=== PATIENT | female | born 1990 | race Caucasian/White ===

== ENCOUNTER 2016-04-11 23:21 | Emergency (ER) | payer OTHER ==
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
--- NOTE | 2016-04-12 01:25 | ED ORDER SUMMARY ---
..... Patient: AARON ZHANG OrderSheet [facility] VisitID: [id number] [address] [place] [address] 25y, F Registration Date/Time: 04/11/2016 ORDER SHEET Weight: 49.8 kg (estimated) Allergies: No Known Drug Allergy GENERAL ORDERS: CBC w Diff Urgent (23:55 04/11/2016 Ariadne Klein) (Ack 23:56 LMuller) (0:54 EInderbitzen R.N.) CMP Urgent (23:55 04/11/2016 Ariadne Klein) (Ack 23:56 LMuller) (0:54 EInderbitzen R.N.) UA-Culture if indicated Urgent (23:55 04/11/2016 Ariadne Klein) (Ack 23:56 LMuller) (0:54 EInderbitzen R.N.) Urine Drug Screen Urgent (23:55 04/11/2016 Ariadne Klein) (Ack 23:56 LMuller) (0:55 EInderbitzen R.N.) Ethyl Alcohol Urgent (23:55 04/11/2016 Ariadne Klein) (Ack 23:56 LMuller) (0:55 EInderbitzen R.N.) Acetaminophen Level Urgent (23:55 04/11/2016 Ariadne Klein) (Ack 23:56 LMuller) (0:55 EInderbitzen R.N.) Salicylate Level Urgent (23:55 04/11/2016 Ariadne Klein) (Ack 23:56 LMuller) (0:55 EInderbitzen R.N.) MEDICATION ORDERS: IV FLUIDS: IV Saline Lock (23:55 04/11/2016 Ariadne Klein) (Ack 0:55 EInderbitzen R.N.) ORDER SHEET NOTES: [Electronically signed by Ramon Castillo R.N. (02:04/12/2016)] [Electronically signed by Onofre Dove Dr. (02:05 04/12/2016)] [Electronically locked/signed by Ramon Castillo R.N. (02:04/12/2016)]
--- NOTE | 2016-04-12 01:25 | ED ORDER SUMMARY ---
..... Patient: AARON ZHANG OrderSheet [facility] VisitID: [id number] [address] [place] [address] 25y, F Registration Date/Time: 04/11/2016 ORDER SHEET Weight: 49.8 kg (estimated) Allergies: No Known Drug Allergy GENERAL ORDERS: CBC w Diff Urgent (23:55 04/11/2016 Ariadne Klein) (Ack 23:56 LMuller) (0:54 EInderbitzen R.N.) CMP Urgent (23:55 04/11/2016 Ariadne Klein) (Ack 23:56 LMuller) (0:54 EInderbitzen R.N.) UA-Culture if indicated Urgent (23:55 04/11/2016 Ariadne Klein) (Ack 23:56 LMuller) (0:54 EInderbitzen R.N.) Urine Drug Screen Urgent (23:55 04/11/2016 Ariadne Klein) (Ack 23:56 LMuller) (0:55 EInderbitzen R.N.) Ethyl Alcohol Urgent (23:55 04/11/2016 Ariadne Klein) (Ack 23:56 LMuller) (0:55 EInderbitzen R.N.) Acetaminophen Level Urgent (23:55 04/11/2016 Ariadne Klein) (Ack 23:56 LMuller) (0:55 EInderbitzen R.N.) Salicylate Level Urgent (23:55 04/11/2016 Ariadne Klein) (Ack 23:56 LMuller) (0:55 EInderbitzen R.N.) MEDICATION ORDERS: IV FLUIDS: IV Saline Lock (23:55 04/11/2016 Ariadne Klein) (Ack 0:55 EInderbitzen R.N.) ORDER SHEET NOTES: [Electronically signed by Ramon Castillo R.N. (02:04/12/2016)] [Electronically signed by Onofre Dove Dr. (02:05 04/12/2016)] [Electronically locked/signed by Ramon Castillo R.N. (02:04/12/2016)]
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
--- NOTE | 2016-04-12 02:05 | ED MAR SUMMARY ---
..... Medication Administration Record [facility] [address] [place], [place] [id number] Patient: AARON ZHANG Visit ID: [id number] 25y, F Weight: 49.8 kg Height/Length: 66 in BMI: 17.7 ALLERGIES: No Known Drug Allergy
--- NOTE | 2016-04-12 02:05 | ED DISCHARGE INSTRUCTIONS ---
Patient: AARON ZHANG General Instructions [facility] VisitID: [id number] [address] [place] [address] 25y, F Registration Date/Time: 04/11/2016 Chronic substance abuse- heroin with intoxication. INSTRUCTIONS Follow-up: Screening today revealed the patient's blood pressure to be in the hypertensive range. The patient should follow up with a primary care provider for blood pressure management. Follow-up with: [facility], , , [address], , [place], [address] Follow up today. Call for an appointment. ADDITIONAL INFORMATION Opiate Abuse Use and abuse of heroin or prescription pain medicines (Vicodin, codeine) may lead to physical ADDICTION or psychological DEPENDENCE. Once this occurs, you are at greater risk for any of the following: - Craving for the drug and unable to stop using the drug even though you think you want to stop (psychological dependence) - Drug withdrawal symptoms if you stop taking the drug (physical addiction) - Loss of your job or your family - Arrest, conviction and [facility]cf sentence for possession of an illegal substance or for driving under the influence of such a substance - Accidental injuries to yourself or others while you are under the influence of the drug (in a car or at home). - HIV infection (much greater risk if you use IV drugs) - Other sexually transmitted diseases (Herpes, chlamydia, gonorrhea and others) - Severe and fatal infection of the heart valves (if you use IV drugs) - Stroke, heart attack, hepatitis B or C, kidney failure - from overdose Home Care: 1) Admit you have a drug problem. Ask for help from your family and close friends. 2) Seek professional help. This could be individual psychotherapy, counseling, or a drug treatment program (outpatient or residential). 3) Join a self-help group for drug abuse. 4) Avoid friends who abuse drugs themselves or tempt you to continue your habit 5) Eat a balanced diet and begin a regular exercise program. Follow Up with your doctor or as advised by our staff. Contact one of the resources below for help. National [place] on Alcoholism and Drug Dependence, www.ncadd.org 491-929-XEMZ Narcotics Anonymous (check your phone book for a local listing or call 211-921-1402) www.na.org National Alcohol and Substance Abuse Information Center (for referral to treatment programs) Www.AddictioncareAll [employer] 748-609-2086 Get Prompt Medical Attention if any of the following occur: -- Symptoms of withdrawal (agitation, anxiety, trembling, sweats, diarrhea, unable to sleep) -- Chest pain -- Unexplained fever over 100.4 F (38.0 C) -- Excessive drowsiness or inability to be awakened -- Slow breathing under 8 breaths per minute -- Shortness of breath or cough with colored sputum -- Redness, swelling or tenderness at an injection site You have been given the following additional information: Opiate Abuse (Electronically signed by Onofre Dove Dr. 04/12/2016 2:05)
--- NOTE | 2016-04-12 02:05 | ED DISCHARGE INSTRUCTIONS ---
Patient: AARON ZHANG General Instructions [facility] VisitID: [id number] [address] [place] [address] 25y, F Registration Date/Time: 04/11/2016 Chronic substance abuse- heroin with intoxication. INSTRUCTIONS Follow-up: Screening today revealed the patient's blood pressure to be in the hypertensive range. The patient should follow up with a primary care provider for blood pressure management. Follow-up with: [facility], , , [address], , [place], [address] Follow up today. Call for an appointment. ADDITIONAL INFORMATION Opiate Abuse Use and abuse of heroin or prescription pain medicines (Vicodin, codeine) may lead to physical ADDICTION or psychological DEPENDENCE. Once this occurs, you are at greater risk for any of the following: - Craving for the drug and unable to stop using the drug even though you think you want to stop (psychological dependence) - Drug withdrawal symptoms if you stop taking the drug (physical addiction) - Loss of your job or your family - Arrest, conviction and nursing home sentence for possession of an illegal substance or for driving under the influence of such a substance - Accidental injuries to yourself or others while you are under the influence of the drug (in a car or at home). - HIV infection (much greater risk if you use IV drugs) - Other sexually transmitted diseases (Herpes, chlamydia, gonorrhea and others) - Severe and fatal infection of the heart valves (if you use IV drugs) - Stroke, heart attack, hepatitis B or C, kidney failure - from overdose Home Care: 1) Admit you have a drug problem. Ask for help from your family and close friends. 2) Seek professional help. This could be individual psychotherapy, counseling, or a drug treatment program (outpatient or residential). 3) Join a self-help group for drug abuse. 4) Avoid friends who abuse drugs themselves or tempt you to continue your habit 5) Eat a balanced diet and begin a regular exercise program. Follow Up with your doctor or as advised by our staff. Contact one of the resources below for help. National [place] on Alcoholism and Drug Dependence, www.ncadd.org 278-175-LLGP Narcotics Anonymous (check your phone book for a local listing or call 495-507-0364) www.na.org National Alcohol and Substance Abuse Information Center (for referral to treatment programs) Www.AddictioncareStrutta.[employer] 160-872-0652 Get Prompt Medical Attention if any of the following occur: -- Symptoms of withdrawal (agitation, anxiety, trembling, sweats, diarrhea, unable to sleep) -- Chest pain -- Unexplained fever over 100.4 F (38.0 C) -- Excessive drowsiness or inability to be awakened -- Slow breathing under 8 breaths per minute -- Shortness of breath or cough with colored sputum -- Redness, swelling or tenderness at an injection site You have been given the following additional information: Opiate Abuse (Electronically signed by Onofre Dove Dr. 04/12/2016 2:05)
--- NOTE | 2016-04-12 02:05 | ED MED RECONCILIATION SUMMARY ---
Patient: AARON ZHANG Medication Reconciliation Report [facility] VisitID: [id number] [address] [place] [address] 25y, F Registration Date/Time: 04/11/2016 Weight: 49.8 kg Height/Length: 66 in. BMI: 17.7 ALLERGIES: No Known Drug Allergy The patient's Home Medications are listed below: Unable to obtain. The source(s) of the original Home Medication information: patient The following Medications were given to the patient in the Emergency Department: None. The following Medications were prescribed to the patient: None.
--- NOTE | 2016-04-12 02:05 | ED MED RECONCILIATION SUMMARY ---
Patient: AARON ZHANG Medication Reconciliation Report [facility] VisitID: [id number] [address] [place] [address] 25y, F Registration Date/Time: 04/11/2016 Weight: 49.8 kg Height/Length: 66 in. BMI: 17.7 ALLERGIES: No Known Drug Allergy The patient's Home Medications are listed below: Unable to obtain. The source(s) of the original Home Medication information: patient The following Medications were given to the patient in the Emergency Department: None. The following Medications were prescribed to the patient: None.
--- NOTE | 2016-04-12 02:05 | ED MAR SUMMARY ---
..... Medication Administration Record [facility] [address] [place], [place] [id number] Patient: AARON ZHANG Visit ID: [id number] 25y, F Weight: 49.8 kg Height/Length: 66 in BMI: 17.7 ALLERGIES: No Known Drug Allergy
== END 2016-04-12 02:00 | disposition home or self-care (01) ==
LOC: ED SRH 23:21
DX: T40.1X1A Poisoning by heroin, accidental (unintentional), initial encounter (principal); F11.20 Opioid dependence, uncomplicated; Z87.891 Personal history of nicotine dependence